=== PATIENT | male | born 1985 | race Caucasian/White ===

== ENCOUNTER 2016-12-17 07:15 | Emergency (ER) | payer OTHER ==
[~2016-12-17] VITALS: Ht 177.8 cm; Wt 62.8 kg
[~2016-12-17 07:15] MED LIST: FLEET ENEMA-AD118 ML PR; FLEXERIL10 MG PO; MILK OF MAGN PO; MOTRIN600 MG PO; NAPROSYN500 MG PO; NAPROXEN500 MG PO; NORCO 5/3251 TABLET PO; PERCOCET 5/31 TABLET PO; XARELTO15 MG PO; ZOFRAN4 MG PO
[2016-12-17 08:01] LABS: HEMATOCRIT 42.4 % (38.0-50.0); MCH 29.7 PG (29.0-34.0); MCHC 33.7 G/DL (30.0-36.0); MCV 88.1 FL (86-99); PLATELET COUNT 166 K/uL (156-360); RBC DIS.WIDTH-CV 12.3 % (11.8-14.6); RBC DIS.WIDTH-SD 39.6 % (39-53); RED BLOOD COUNT 4.81 M/uL (4.00-5.50); WHITE BLOOD COUNT 7.7 K/uL (4.1-10.2)
[2016-12-17 08:12] LABS: CHLORIDE 107 mEq/L (99-109); D-DIMER ELISA 0.32 mg/L FEU (< 0.57); POTASSIUM 3.9 mEq/L (3.7-5.4); PROTHROMBIN TIME 10.6 (9.2-11.2); SODIUM 141 mEq/L (136-147)
[2016-12-17 08:15] LABS: GLUCOSE 93 mg/dL (70-99)
[2016-12-17 08:16] LABS: ANION GAP 8 MEQ/L (2-14)
[2016-12-17 08:17] LABS: TOTAL BILIRUBIN 0.5 mg/dL (0.0-1.0)
[2016-12-17 08:18] LABS: ALKALINE PHOSPHATASE 67 IU/L (3-129); GFR ESTIMATE (CALCULATED) > 59 mL/min/
[2016-12-17 08:19] LABS: UREA NITROGEN (BUN) 12 mg/dL (9-23)
[2016-12-17 08:22] LABS: TROP-I INTERPRETATION NEGATIVE; TROPONIN-I < 0.01 ng/mL (0.0-0.30)
[2016-12-17] MEDS ORDERED: PROAIR HFA8.5 GM IH (08:51)
[2016-12-17] MEDS ORDERED: MUCUS ER600 MG PO (08:51)
[2016-12-17] MEDS ORDERED: NAPROSYN500 MG PO (08:51)
[2016-12-17] MEDS ORDERED: ROBITUSSIN NIG118 ML PO (08:51)
[2016-12-17] MEDS ORDERED: TESSALON200 MG PO (08:51)
[2016-12-17 09:02] VITALS: BP 109/73
== END 2016-12-17 09:03 | disposition home or self-care (01) ==
LOC: EME 07:15
PROVIDERS: Nurse Practitioner Family
DX: J20.8 Acute bronchitis due to other specified organisms (principal); F17.200 Nicotine dependence, unspecified, uncomplicated; J45.909 Unspecified asthma, uncomplicated; Z87.442 Personal history of urinary calculi; Z86.718 Personal history of other venous thrombosis and embolism; Z88.8 Allergy status to other drugs, medicaments and biological substances; Z88.5 Allergy status to narcotic agent
CPT/HCPCS: 71020; 80048; 80053; 84484; 85027; 85379; 85610; 93005; 94640; 99281; 99284